=== PATIENT | female | born 1955 | race Caucasian/White ===

== ENCOUNTER 2023-05-01 22:20 | Emergency (ER) | payer MEDICARE, OTHER, SELFPAY ==
[2023-05-01 22:21] VITALS: BP 154/79; PULSE 88; RESP 16; TEMP 36.9; O2SAT 97; BMI 30.7
--- NOTE | 2023-05-01 22:56 | EX.ED.DYSGE1 ---
HPI History of Present Illness Chief Complaint: Fever Informant: patient Onset/Context/Timing Onset: Today Narrative Narrative: Patient presents secondary to elevated temperature and concern for neutropenic fever. She is currently being treated for ovarian cancer and her last chemotherapy round was on April 18. Today she felt weak and fatigued. Her temperature was 99.1 which she states is high for her. When she went to the bathroom tonight she had what looked like blood in her stool. She does admit that she does juice and uses beets and is not sure if it was truly blood or from her juicing. She does report some gum irritation with some mild bleeding. She has not had significant cough or congestion. She has not had significant abdominal pain. [facility] Medical History (Updated 05/02/23 @ 00:[address] Mercedes Mcdonald MD) Anemia Asthma Celiac disease Fibromyalgia Gout Hypertension Hypothyroidism Ovarian cancer Paroxysmal SVT (supraventricular tachycardia) Restless leg syndrome Home Medications dexamethasone 4 mg tablet 20 mg DAILY 05/02/23 [History Last Taken Unknown] levofloxacin 750 mg tablet 750 mg PO DAILY #4 tabs 05/02/23 [Rx Last Taken Unknown] olanzapine 5 mg tablet 5 - 10 mg PO QHS PRN Anxiety 05/02/23 [History Last Taken Unknown] trazodone 100 mg tablet 100 mg QHS 05/02/23 [History Last Taken Unknown] Allergy/AdvReac Type Severity Reaction Status Date / Time cefdinir Allergy Rash Verified 05/01/23 22:29 Environmental Allergies: Allergy Itching Verified 05/01/23 22:29 Uncoded [fragrances] formaldehyde Allergy Shortness Verified 05/01/23 22:29 of breath inositol Allergy PT UNSURE Verified 05/01/23 22:29 OF REACTION latex Allergy Itching Verified 05/01/23 22:29 niacin Allergy Hives Verified 05/01/23 22:29 Sulfa (Sulfonamide Allergy Hives Verified 05/01/23 22:29 Antibiotics) [sulfa drugs] aspartame AdvReac Diarrhea Verified 05/01/23 22:29 barley AdvReac Other Verified 05/01/23 22:29 ciprofloxacin [From Cipro] AdvReac Other Verified 05/01/23 22:29 shellfish derived AdvReac Vomiting Verified 05/01/23 22:29 wheat AdvReac Other Verified 05/01/23 22:29 MALT AdvReac Other Uncoded 05/01/23 22:29 Surgical History History of bowel resection History of hysterectomy Social History Smoking Status: Never smoker ROS ROS ED Constitutional Constitutional ED: Reports fever(s) Eyes Eyes: Denies change in vision or discharge from eye(s) ENT ENT ED: Denies discharge from eye(s), rhinorrhea or sore throat Cardiovascular Cardiovascular: Denies chest pain or palpitations Respiratory/Chest Respiratory/Chest: Denies cough or dyspnea Gastrointestinal Gastrointestinal: Reports other Details: Blood in stool ; Denies abdominal pain, diarrhea, nausea or vomiting Genitourinary Genitourinary ED: Denies difficulty urinating or dysuria Musculoskeletal Musculoskeletal: Denies back pain or extremity pain Integumentary Denies Abrasions or rash Neurologic Neurologic: Reports weakness; Denies headache(s) Psychiatric Psychiatric: Denies anxiety or depression Allergic/Immunologic Allergic/Immunologic ED: Denies lip swelling or urticaria EXAM Physical Exam Const Vital Signs: 05/01/23 22:21 05/01/23 23:33 05/02/23 00:34 Temperature 98.5 F 98.6 F Temperature Source Oral Oral Pulse Rate 88 76 Respiratory Rate 16 17 Respiratory Effort Normal Respiratory Pattern Normal Blood Pressure 154/79 H 151/80 H Blood Pressure Mean 104 103 Pulse Ox 97 99 Oxygen Delivery Method Room Air Room Air Positive well nourished and well developed General Appearance ED: well developed HEENT Reports normocephalic and head/scalp atraumatic Eyes PERRL and EOMs intact bilaterally Neck supple Chest Wall inspection of chest normal and palpation of chest normal Resp normal respiratory effort and clear to auscultation bilaterally Cardio regular rate and regular rhythm GI normal to inspection, nondistended, normoactive bowel sounds Palpation: soft Extremity normal to inspection Neuro oriented x3 and no sensory deficits noted Sensorium / Orientation: alert Motor Exam: strength 5/5 throughout Psych mental status grossly normal Skin no rashes or lesions noted MDM MDM MDM Narrative Medical decision making narrative: Work-up for neutropenic fever is initiated. It is noted that the patient's oral temperature here is 98.5. She did not take Tylenol or ibuprofen to blunt any effect of a fever. Lab Data Attestation: I reviewed the patient's lab results. Labs: Laboratory Results - last 24 hr 05/01/23 05/01/2305/01/23 23:12 23:12 23:12 WBC 3.0 L RBC 4.18 L Hgb 11.3 L Hct 34.1 L MCV 81.6 MCH 27.0 MCHC 33.1 RDW Std Deviation 50.8 H RDW Coeff of Michele 17.3 H Plt Count 211 MPV 8.9 Immature Gran % (Auto) 1.000 H Neut % (Auto) 34.4 L Lymph % (Auto) 49.7 H Dubois % (Auto) 12.9 H Eos % (Auto) 1.7 Baso % (Auto) 0.3 Absolute Neuts (auto) 1.0 L Absolute Lymphs (auto) 1.50 Nucleated RBC % 0 PT 13.1 INR 1.0 APTT 29.4 Sodium 138 Potassium 3.8 Chloride 106 Carbon Dioxide 25.0 Anion Gap 7 BUN 7 Creatinine 0.74 Estim Creat Clear Calc 47.79 Est GFR (MDRD) Af Amer 101 Est GFR (MDRD) Non-Af 83 BUN/Creatinine Ratio 9.5 L Glucose 116 H Lactic Acid Calcium 9.4 Total Bilirubin 0.20 AST 20 ALT 36 Alkaline Phosphatase 69 Total Protein 7.0 Albumin 3.4 Globulin 3.6 Albumin/Globulin Ratio 0.9 Urine Color Urine Clarity Urine pH Ur Specific [place] Urine Protein Urine Glucose (UA) Urine Ketones Urine Occult Blood Urine Nitrite Urine Bilirubin Urine Urobilinogen Ur Leukocyte Esterase Urine RBC Urine WBC Ur Squamous Epith Cells Urine Bacteria Urine Mucus 05/01/23 05/01/23 23:12 23:29 WBC RBC Hgb Hct MCV MCH MCHC RDW Std Deviation RDW Coeff of Michele Plt Count MPV Immature Gran % (Auto) Neut % (Auto) Lymph % (Auto) Dubois % (Auto) Eos % (Auto) Baso % (Auto) Absolute Neuts (auto) Absolute Lymphs (auto) Nucleated RBC % PT INR APTT Sodium Potassium Chloride Carbon Dioxide Anion Gap BUN Creatinine Estim Creat Clear Calc Est GFR (MDRD) Af Amer Est GFR (MDRD) Non-Af BUN/Creatinine Ratio Glucose Lactic Acid 1.5 Calcium Total Bilirubin AST ALT Alkaline Phosphatase Total Protein Albumin Globulin Albumin/Globulin Ratio Urine Color Yellow Urine Clarity Sl. Cloudy Urine pH 7.0 Ur Specific [place] 1.005 Urine Protein 15 H Urine Glucose (UA) Normal Urine Ketones Negative Urine Occult Blood Negative Urine Nitrite Negative Urine Bilirubin Negative Urine Urobilinogen Normal Ur Leukocyte Esterase 500 H Urine RBC 0 SEEN Urine WBC 0-5 SEEN Ur Squamous Epith Cells 0-5 SEEN Urine Bacteria 1+ Urine Mucus 0 SEEN Radiography Chest X-Ray - ED: 2 View, Read by ED Physician, Chronic Changes and No Infiltrates Diagnostic Testing: Clinical Impression(s) from Imaging Studies Chest X-Ray 05/01/23 23:45 IMPRESSION: No radiographic evidence of acute cardiopulmonary disease. Electronically Signed: Gurmeet Pereira MD at 0:06 EDT , Treatment and Re-Evaluation :: CBC does reveal neutropenia with absolute neutrophil count of 1000. Her white count is 3 with 34% neutrophils. Her hemoglobin is 11.3 which appears to be consistent with her prior values. Her coags are unremarkable. Chemistry studies are normal. LFTs are normal. Lactic acid is normal at 1.5. Urinalysis reveals 1+ bacteria with no nitrites and 0-5 white cells. Urine and blood cultures have been sent. Two-view chest x-ray per my interpretation reveals no evidence of focal infiltrate. Radiology interpretation is reviewed and agrees. Swab for COVID and influenza is obtained and negative. Stool guaiac is obtained and is also negative. Patient has not had a true documented temperature as her Tmax at home was 99.1. I spoke with Dr. Flynn. Given that she is neutropenic we will go ahead and cover her with 5 days of Levaquin, first dose given here. His office will reach out to her tomorrow for repeat labs. Patient is comfortable with this plan. Discharge Plan Triage Chief Complaint: Fever ED Provider: Mercedes Mcdonald Dx/Rx/DC Orders Clinical Impression: Neutropenia Instructions: Neutropenia Prescriptions: New levofloxacin 750 mg tablet 750 mg PO DAILY Qty: 4 0RF No Action olanzapine 5 mg tablet 5 - 10 mg PO QHS PRN (Reason: Anxiety) trazodone 100 mg tablet 100 mg QHS dexamethasone 4 mg tablet 20 mg DAILY Label Comments: take 5 tablets by mouth 12 hours before CHEMOTHERAPY and 5 tablets 6 hours before CHEMOTHERAPY Rx Instructions: TAKE 12 AND 6 HOURS BEFORE CHEMO Primary Care Provider: Maria Elena Moeller Referrals: Maria Elena Moeller DO [Primary Care Provider] - Philip Flynn DO [Med Staff - Active Staff] - 3-5 Days Disposition Disposition: Home, Self Care
[2023-05-01 23:35] LABS: Basophil# 0.01 X10^3/uL; Basophil% 0.3 % (0-1); Eosinophil# 0.05 X10^3/uL; Eosinophils% 1.7 % (0-5); Hematocrit 34.1 % (37-47); Hemoglobin 11.3 g/dL (12.0-15.0); Lymphocyte % 49.7 % (19-41); Mean Corp Hgb Conc 33.1 g/dL (32-36); Mean Corpuscular Volume 81.6 fL (81-99); Mean Platelet Vol. 8.9 fl (6.2-12.0); Monocyte# 0.39 X10^3/uL; Monocyte% 12.9 % (0-10); NRBC Flagged by Analyzer 0 % (0-5); Neutrophil # 1.04 X10^3/uL (2.7-7.7); Neutrophil % 34.4 % (47-70); Platelet Count 211 K/mm3 (150-450); RBC Distribution Width CV 17.3 % (11.6-14.6); RBC Distribution Width SD 50.8 fl (35.1-43.9); Red Blood Count 4.18 M/mm3 (4.2-5.4)
[2023-05-01] MEDS: 0.9% Normal Saline 1,000 ML 125 ML IV (23:35)
[2023-05-01 23:37] LABS: Mucous, Urine 0 SEEN /hpf (<or=2+); Red Blood Cells-Urine 0 SEEN /hpf (0-5)
[2023-05-01 23:40] LABS: Color, Urine Yellow (Yellow); Glucose, Dipstick Normal (Normal); Ketone-Dipstick Negative (Negative); Leukocyte Esterase-Dipstick 500 /ul (Negative); Nitrite-Dipstick Negative (Negative); Occult Blood-Urine Negative /ul (Negative); Protein-Dipstick 15 mg/dl (Negative); Specific Gravity, Urine 1.005 (1.002-1.030); Urine Bilirubin Dipstick Negative (Negative); Urine Clarity Sl. Cloudy (Clear); Urine Urobilinogen Normal (Normal)
[2023-05-01 23:45] LABS: Prothrombin Time (Protime)PT. 13.1 SECONDS (11.7-14.9)
--- NOTE | 2023-05-01 23:45 | RAD_ITS ---
EXAM: XR CHEST, 2 VIEWS CLINICAL INDICATION: fever TECHNIQUE: Frontal and lateral views of the chest. COMPARISON: No relevant prior studies available. FINDINGS: LUNGS AND PLEURAL SPACES: Unremarkable. No consolidation or edema. No pneumothorax. No effusion. No peribronchial cuffing. HEART: Normal heart size and pulmonary vasculature. MEDIASTINUM: Thoracic aorta is calcific and minimally elongated. No mediastinal widening. Trachea is midline. BONES/JOINTS: Thoracic degenerative spurring. SOFT TISSUES: Midabdominal surgical clips. RAD/Chest PA and Lateral IMPRESSION: No radiographic evidence of acute cardiopulmonary disease. Electronically Signed: Gurmeet Pereira MD at 0:06 EDT ,
[2023-05-01 23:46] LABS: Partial Thromboplast Time 29.4 Seconds (24.1-36.2)
[2023-05-01 23:52] LABS: ALB/GLOB Ratio 0.9 RATIO (0.9-2.4); AST(SGOT) 20 U/L (15-37); Alanine Aminotransfer ALT/SGPT 36 U/L (13-56); Albumin, Serum 3.4 g/dL (3.2-5.0); Alkaline Phosphatase 69 U/L (45-117); Anion Gap 7 (5-15); BUN 7 mg/dL (7-18); BUN/Creat Ratio 9.5 RATIO (10-20); Calcium,Total 9.4 mg/dL (8.5-10.1); Chloride 106 mmol/L (98-107); Creatinine, Serum 0.74 mg/dL (0.55-1.02); EST Glomerular Filtration Rate 83 mL/min (>60); Est Glom Filt Rate - Afr Amer 101 mL/min (>60); Estimated Creatinine Clearance 47.79 ml/min; Globulin 3.6 g/dL (2.2-4.2); Glucose 116 mg/dL (74-106); Potassium 3.8 mmol/L (3.5-5.1); Sodium Level 138 mmol/L (136-145)
[2023-05-01 23:54] LABS: Lactic Acid 1.5 mmol/L (0.4-1.9)
[2023-05-01 23:56] LABS: Bacteria 1+ /hpf (None Seen); Squamous Epithelial Cells - UA 0-5 SEEN /hpf (5-10); White Blood Cells 0-5 SEEN /hpf (0-5)
[2023-05-02 00:34] VITALS: BP 151/80; PULSE 76; RESP 17; TEMP 37; O2SAT 99
[2023-05-02] MEDS: levoFLOXacin 750 MG Tablet PO (00:50)
== END 2023-05-02 00:58 | disposition home or self-care (01) ==
PROVIDERS: Emergency Provider Emergency Medicine; PCP Internal Medicine; Visit Provider Emergency Medicine
DX: D70.9 Neutropenia, unspecified (principal); I10 Essential (primary) hypertension; Z92.21 Personal history of antineoplastic chemotherapy; Z85.43 Personal history of malignant neoplasm of ovary; Z90.710 Acquired absence of both cervix and uterus
CPT/HCPCS: 71046; 80053; 81001; 82274; 83605; 85025; 85610; 85730; 87040; 87086; 87088; 87428; 96360; 99284; J7030; A4216

== ENCOUNTER 2023-06-03 21:08 | Emergency (ER) | payer MEDICARE, OTHER, SELFPAY ==
[2023-06-03 21:09] VITALS: BP 172/90; PULSE 89; RESP 16; TEMP 36.4; O2SAT 97; BMI 32.0
[2023-06-03] MEDS: cloNIDine HCl 0.1 MG Tablet PO (22:15)
[2023-06-03 22:28] LABS: Anion Gap 6 (5-15); BUN 9 mg/dL (7-18); BUN/Creat Ratio 11.8 RATIO (10-20); Calcium,Total 9.6 mg/dL (8.5-10.1); Chloride 106 mmol/L (98-107); Creatinine, Serum 0.76 mg/dL (0.55-1.02); EST Glomerular Filtration Rate 81 mL/min (>60); Est Glom Filt Rate - Afr Amer 98 mL/min (>60); Estimated Creatinine Clearance 39.75 ml/min; Glucose 92 mg/dL (74-106); Potassium 3.8 mmol/L (3.5-5.1); Sodium Level 138 mmol/L (136-145)
[2023-06-03 22:36] VITALS: BP 124/99
--- NOTE | 2023-06-03 23:01 | EDS_ITS ---
HPI History of Present Illness Chief Complaint: Hypertension Detail of Chief Complaint: Elevated blood pressure Informant: patient Onset/Context/Timing Onset: Today Context: Sudden Onset Timing: Continuous Quality: Elevated blood pressure since receiving Avistatin to treat stage III FT CA Location: Cardiovascular Current Severity: Mild Maximum Severity: Mild Worsened by: New chemo Relieved by: Nothing Associated Symptoms Associated Symptoms: No symptoms that are new Narrative Narrative: Patient is a 68-year-old woman who has had trouble with her vision for over a month. She is also complained of numbness in her left hand and foot that has been intermittent for some time. 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 Today she has had significant issues. She complained of slight headache. She denied double vision, blurred vision or loss of vision. Denies trouble with speech or swallowing. Denies problems with balance or coordination. She denies chest pain or shortness of breath. She denies abdominal pain or back pain. She reports compliance with her medication. She took an extra dose of her blood pressure med as directed by her oncologist. Prior similar symptoms: No Recent Illness/Hospitalization: Yes [facility] Medical History Anemia Asthma Celiac disease Fibromyalgia Gout Hypertension Hypothyroidism Ovarian cancer Paroxysmal SVT (supraventricular tachycardia) Restless leg syndrome Home Medications acetaminophen 325 mg tablet 650 mg Q6H PRN Pain 05/02/23 [History Last Taken Unknown] albuterol sulfate 90 mcg/actuation aerosol inhaler (Proventil HFA) 2 puff inhalation Q6H PRN Shortness Of Breath 05/02/23 [History Last Taken Unknown] allopurinol 100 mg tablet 100 mg DAILY 05/02/23 [History Last Taken Unknown] dexamethasone 4 mg tablet 20 mg DAILY 05/02/23 [History Last Taken Unknown] fexofenadine 180 mg tablet 180 mg PO BID 05/02/23 [History Last Taken Unknown] levofloxacin 750 mg tablet 750 mg PO DAILY #4 tabs 05/02/23 [Rx Last Taken Unknown] levothyroxine 50 mcg capsule (Tirosint) 50 mcg PO DAILY 05/02/23 [History Last Taken Unknown] lisinopril 10 mg tablet 5 mg DAILY 05/02/23 [History Last Taken Unknown] metformin 500 mg tablet,extended release 24 hr 1,000 mg PO DAILY 05/02/23 [History Last Taken Unknown] metformin 500 mg tablet,extended release 24 hr 500 mg PO QHS 05/02/23 [History Last Taken Unknown] olanzapine 5 mg tablet 5 - 10 mg PO QHS PRN Anxiety 05/02/23 [History Last Taken Unknown] oxycodone 5 mg tablet 5 mg Q6H PRN PRN Pain 05/02/23 [History Last Taken Unknown] pantoprazole 40 mg tablet,delayed release 40 mg PO DAILY 05/02/23 [History Last Taken Unknown] polyethylene glycol 3350 17 gram/dose oral powder 17 g DAILY 05/02/23 [History Last Taken Unknown] prochlorperazine maleate 5 mg tablet 10 mg Q8 PRN Nausea 05/02/23 [History Last Taken Unknown] tizanidine 4 mg tablet 2 - 4 mg Q8 PRN Muscle Spasm 05/02/23 [History Last Taken Unknown] trazodone 100 mg tablet 100 mg QHS 05/02/23 [History Last Taken Unknown] Allergy/AdvReac Type Severity Reaction Status Date / Time cefdinir Allergy Rash Verified 05/01/23 22:29 Environmental Allergies: Allergy Itching Verified 05/01/23 22:29 Uncoded [fragrances] formaldehyde Allergy Shortness Verified 05/01/23 22:29 of breath inositol Allergy PT UNSURE Verified 05/01/23 22:29 OF REACTION latex Allergy Itching Verified 05/01/23 22:29 niacin Allergy Hives Verified 05/01/23 22:29 Sulfa (Sulfonamide Allergy Hives Verified 05/01/23 22:29 Antibiotics) [sulfa drugs] aspartame AdvReac Diarrhea Verified 05/01/23 22:29 barley AdvReac Other Verified 05/01/23 22:29 ciprofloxacin [From Cipro] AdvReac Other Verified 05/01/23 22:29 shellfish derived AdvReac Vomiting Verified 05/01/23 22:29 wheat AdvReac Other Verified 05/01/23 22:29 MALT AdvReac Other Uncoded 05/01/23 22:29 Surgical History History of bowel resection History of hysterectomy Social History (Updated 06/03/23 @ 23:[address] Zane Montes MD) household members: none Smoking Status: Never smoker substance use type: does not use ROS ROS ED Constitutional Constitutional ED: Denies chills, fever(s), subjective, sweats or weight loss Eyes Eyes: Denies blurry vision, change in vision or diplopia ENT ENT ED: Denies ear pain, rhinorrhea or sore throat Cardiovascular Cardiovascular: Denies chest pain, orthopnea, palpitations, paroxysmal nocturnal dyspnea or racing heartbeat Respiratory/Chest Respiratory/Chest: Denies cough, dyspnea, dyspnea on exertion, orthopnea or paroxysmal nocturnal dyspnea Gastrointestinal Gastrointestinal: Denies abdominal pain, nausea or vomiting Genitourinary Genitourinary ED: Denies dysuria, hematuria or urinary frequency Musculoskeletal Musculoskeletal: Denies arthralgias, back pain, myalgias or neck pain Integumentary Denies rash Neurologic Neurologic: Reports paresthesias LUE and LLE; Denies headache(s) or weakness Psychiatric Psychiatric: Denies anxiety, depression or suicidal ideation Endocrine Endocrinology: Denies cold intolerance or heat intolerance Hematologic/Lymphatic Hematologic/Lymphatic: Reports systems reviewed and no addt'l complaints, except as documented EXAM Physical Exam Const Vital Signs: 06/03/23 21:09 06/03/23 21:41 06/03/23 22:36 Temperature 97.6 F L Temperature Source Temporal Pulse Rate 89 Respiratory Rate 16 Respiratory Effort Normal Non-Labored Respiratory Pattern Normal Blood Pressure 172/90 H 124/99 H Blood Pressure Mean 117 107 Pulse Ox 97 Oxygen Delivery Method Room Air Positive well nourished and well developed General Appearance ED: well developed and NAD; Negative for cyanotic, diaphoretic or pallor HEENT Reports moist mucous membranes HEENT Narrative: Alopecia noted. Ears normal. Nares patent. Mucosa moist. Uvula midline. No deviation tongue with protrusion. Eyes PERRL and EOMs intact bilaterally General Eye ED: Negative for scleral icterus Neck no lymphadenopathy, supple and no JVD Chest Wall inspection of chest normal and palpation of chest normal Resp normal respiratory effort and clear to auscultation bilaterally Cardio regular rate, regular rhythm, S1 normal heart sound, S2 normal heart sound and no murmurs GI normal to inspection, nondistended, normoactive bowel sounds, non-tender, non- distended and no masses; Negative for hepatosplenomegaly Back/Spine no CVA tenderness Extremity normal to inspection General Extremety ED: Negative for edema or tenderness General Extremity: Negative for edema Neuro oriented x3, CN's II-XII intact bilaterally and no sensory deficits noted Sensorium / Orientation: alert Psych mental status grossly normal Skin no rashes or lesions noted, no wounds and skin turgor normal General Skin Exam: Negative for jaundice or pallor MDM MDM MDM Narrative Medical decision making narrative: Patient with a nonfocal neurologic exam. She has very minimal symptoms at this time. And her symptoms can be attributed to her chemo. She does have elevated blood pressure. We will obtain basic metabolic panel to assess for endorgan dysfunction involving her kidney. Since she normally has a pressure of 1 20-1 30 we will treat her elevated blood pressure with clonidine 0.1 mg and she is complaining of headache. Since her neuro exam is nonfocal CT of the head was not obtained. Patient was reassessed at 2301. Blood pressure has improved markedly. Her symptoms have not improved much. She was instructed to follow-up with Dr. Philip Flynn her oncologist. She was not prescribed any new blood pressure meds. Suspect this is due to her chemo since it is a known side effect and patient in all likelihood will need her chemo regimen to be changed. History & Record Review Additional record(s) reviewed:: Prior outpatient record and Prior labs Lab Data Labs: Laboratory Results - last 24 hr 06/03/23 22:10 Sodium 138 Potassium 3.8 Chloride 106 Carbon Dioxide 26.0 Anion Gap 6 BUN 9 Creatinine 0.76 Estim Creat Clear Calc 39.75 Est GFR (MDRD) Af Amer 98 Est GFR (MDRD) Non-Af 81 BUN/Creatinine Ratio 11.8 Glucose 92 Calcium 9.6 Discharge Plan Triage Chief Complaint: Hypertension ED Provider: Zane Montes Dx/Rx/DC Orders Clinical Impression: Asymptomatic hypertension, Adverse reaction to drug in therapeutic use Instructions: ED Hypertension, Established Prescriptions: No Action olanzapine 5 mg tablet 5 - 10 mg PO QHS PRN (Reason: Anxiety) trazodone 100 mg tablet 100 mg QHS dexamethasone 4 mg tablet 20 mg DAILY Patient Comments: take 5 tablets by mouth 12 hours before CHEMOTHERAPY and 5 tablets 6 hours before CHEMOTHERAPY Rx Instructions: TAKE 12 AND 6 HOURS BEFORE CHEMO acetaminophen 325 mg tablet 650 mg Q6H PRN (Reason: Pain) Patient Comments: take 2 tablets by mouth every 6 hours if needed for pain tizanidine 4 mg tablet 2 - 4 mg Q8 PRN (Reason: Muscle Spasm) Patient Comments: take 1/2 to 1 tablet by mouth every 8 hours if needed MAXIMUM DAILY DOSE OF 3 tablets prochlorperazine maleate 5 mg tablet 10 mg Q8 PRN (Reason: Nausea) pantoprazole 40 mg tablet,delayed release (DR/EC) 40 mg PO DAILY Patient Comments: take 1 tablet by mouth 30 MINUTES MEAL polyethylene glycol 3350 17 gram/dose powder 17 g DAILY Patient Comments: take 17GM (DISSOLVED IN 4 TO 8 OUNCES OF LIQUID) by mouth once daily if needed for constipation oxycodone 5 mg tablet 5 mg Q6H PRN PRN (Reason: Pain) Patient Comments: take 1 tablet by mouth every 6 hours NEEDED FOR PAIN for up to 7 days levofloxacin 750 mg tablet 750 mg PO DAILY Qty: 4 0RF fexofenadine [Patricia] 180 mg Tablet 180 mg PO BID allopurinol 100 mg tablet 100 mg DAILY lisinopril 10 mg tablet 5 mg DAILY albuterol sulfate [Proventil HFA] 90 mcg/actuation Hfa Aerosol Inhaler 2 puff INHALATION Q6H PRN (Reason: Shortness Of Breath) metformin 500 mg tablet extended release 24 hr 1,000 mg PO DAILY Patient Comments: take 2 tablets by mouth every morning and 1 tablet by mouth AT 1 PM metformin 500 mg tablet extended release 24 hr 500 mg PO QHS Patient Comments: take 2 tablets by mouth every morning and 1 tablet by mouth AT 1 PM levothyroxine [Tirosint] 50 mcg capsule 50 mcg PO DAILY Patient Comments: take 1 capsule by mouth once daily Primary Care Provider: Maria Elena Moeller Referrals: Maria Elena Moeller DO [Primary Care Provider] - 1-2 Weeks Philip Flynn DO [Med Staff - Active Staff] - 3-5 Days Disposition Disposition: Home, Self Care
[2023-06-03 23:10] VITALS: BP 128/89
== END 2023-06-03 23:37 | disposition home or self-care (01) ==
LOC: ED 23:34
PROVIDERS: Emergency Provider Emergency Medicine; PCP Internal Medicine; Visit Provider Emergency Medicine
DX: I10 Essential (primary) hypertension (principal); T45.1X5A Adverse effect of antineoplastic and immunosuppressive drugs, initial encounter; Z85.89 Personal history of malignant neoplasm of other organs and systems; J45.909 Unspecified asthma, uncomplicated; Z79.899 Other long term (current) drug therapy; M10.9 Gout, unspecified; E03.9 Hypothyroidism, unspecified
CPT/HCPCS: 80048; 99284

== ENCOUNTER 2023-09-10 18:56 | Emergency (ER) | payer MEDICARE, OTHER, SELFPAY ==
[2023-09-10 18:57] VITALS: BP 151/69; PULSE 98; RESP 18; TEMP 36.1; O2SAT 98; BMI 33.0
--- NOTE | 2023-09-10 19:22 | EX.ED.DYSGE1 ---
HPI <BINTA Goncalves - Last Filed: 09/10/23 20:48> History of Present Illness Chief Complaint: Abd Pain Narrative Narrative: 68-year-old female presents with increased abdominal pain that started after waking up today and vomiting that started an hour ago. She has a history of stage III ovarian cancer and had extensive abdominal surgery in January 2023 at [facility] with Dr. Landis. She states they did a complete hysterectomy as well as removing part of her omentum and lymph nodes. Since then she has had intermittent significant abdominal pain and treated it conservatively at home by pushing on her abdomen. She was never evaluated during these episodes so it's not clear if this represented a partial small bowel obstruction. Today she was able to eat breakfast and lunch but then had increased pain and vomited once while here which improved her pain. She had 2 normal BMs earlier today and is passing gas. [facility] <BINTA Goncalves - Last Filed: 09/10/23 20:48> [facility] Medical History Anemia Asthma Celiac disease Fibromyalgia Gout Hypertension Hypothyroidism Ovarian cancer Paroxysmal SVT (supraventricular tachycardia) Restless leg syndrome Home Medications acetaminophen 325 mg tablet 650 mg Q6H PRN Pain 05/02/23 [History Last Taken Unknown] albuterol sulfate 90 mcg/actuation aerosol inhaler (Proventil HFA) 2 puff inhalation Q6H PRN Shortness Of Breath 05/02/23 [History Last Taken Unknown] allopurinol 100 mg tablet 100 mg DAILY 05/02/23 [History Last Taken Unknown] dexamethasone 4 mg tablet 20 mg DAILY 05/02/23 [History Last Taken Unknown] fexofenadine 180 mg tablet 180 mg PO BID 05/02/23 [History Last Taken Unknown] levofloxacin 750 mg tablet 750 mg PO DAILY #4 tabs 05/02/23 [Rx Last Taken Unknown] levothyroxine 50 mcg capsule (Tirosint) 50 mcg PO DAILY 05/02/23 [History Last Taken Unknown] lisinopril 10 mg tablet 5 mg DAILY 05/02/23 [History Last Taken Unknown] metformin 500 mg tablet,extended release 24 hr 1,000 mg PO DAILY 05/02/23 [History Last Taken Unknown] metformin 500 mg tablet,extended release 24 hr 500 mg PO QHS 05/02/23 [History Last Taken Unknown] olanzapine 5 mg tablet 5 - 10 mg PO QHS PRN Anxiety 05/02/23 [History Last Taken Unknown] oxycodone 5 mg tablet 5 mg Q6H PRN PRN Pain 05/02/23 [History Last Taken Unknown] pantoprazole 40 mg tablet,delayed release 40 mg PO DAILY 05/02/23 [History Last Taken Unknown] polyethylene glycol 3350 17 gram/dose oral powder 17 g DAILY 05/02/23 [History Last Taken Unknown] prochlorperazine maleate 5 mg tablet 10 mg Q8 PRN Nausea 05/02/23 [History Last Taken Unknown] tizanidine 4 mg tablet 2 - 4 mg Q8 PRN Muscle Spasm 05/02/23 [History Last Taken Unknown] trazodone 100 mg tablet 100 mg QHS 05/02/23 [History Last Taken Unknown] Allergy/AdvReac Type Severity Reaction Status Date / Time Food Allergies: Uncoded Allergy Mild Upset Verified 09/10/23 19:00 Stomach cefdinir Allergy Rash Verified 09/10/23 19:00 Environmental Allergies: Allergy Itching Verified 09/10/23 19:00 Uncoded [fragrances] formaldehyde Allergy Shortness Verified 09/10/23 19:00 of breath inositol Allergy PT UNSURE Verified 09/10/23 19:00 OF REACTION latex Allergy Itching Verified 09/10/23 19:00 niacin Allergy Hives Verified 09/10/23 19:00 Sulfa (Sulfonamide Allergy Hives Verified 09/10/23 19:00 Antibiotics) [sulfa drugs] aspartame AdvReac Diarrhea Verified 09/10/23 19:00 barley AdvReac Other Verified 09/10/23 19:00 ciprofloxacin [From Cipro] AdvReac Other Verified 09/10/23 19:00 shellfish derived AdvReac Vomiting Verified 09/10/23 19:00 wheat AdvReac Other Verified 09/10/23 19:00 Surgical History History of bowel resection History of hysterectomy Social History (Updated 06/03/23 @ 23:[address] Zane Montes MD) household members: none Smoking Status: Never smoker substance use type: does not use ROS <BINTA Goncalves - Last Filed: 09/10/23 20:48> ROS ED ROS Narrative Constitutional: Negative for fever, chills, malaise. CVS: Negative for chest pain. Respiratory: Negative for shortness of breath. GI: Positive for abdominal pain, nausea, vomiting. Negative for diarrhea, constipation, melena, hematochezia. : Negative for dysuria. EXAM <BINTA Goncalves - Last Filed: 09/10/23 20:48> Physical Exam Narrative Exam Narrative: CONST: Patient sitting in no acute distress. EYES: Normal inspection. NECK: Normal inspection. RESP: No respiratory distress, CTAB. CVS: Regular rate and rhythm, no murmur, no gallop. ABD: Soft with periumbilical tenderness but no palpable hernia, no guarding or rebound, nondistended. SKIN: Color normal, no rash, warm, dry, intact. EXTREMITIES: Normal appearance, no pedal edema. NEURO: Oriented x4. PSYCH: Normal affect. Const Vital Signs: 09/10/23 18:57 09/10/23 21:00 Temperature 97 F L Temperature Source Temporal Pulse Rate 98 Respiratory Rate 18 16 Blood Pressure 151/69 H Blood Pressure Mean 96 Pulse Ox 98 Oxygen Delivery Method Room Air <Dr. Mercedes Mcdonald MD - Last Filed: 09/10/23 22:54> Physical Exam Const Vital Signs: 09/10/23 18:57 09/10/23 21:00 Temperature 97 F L Temperature Source Temporal Pulse Rate 98 Respiratory Rate 18 16 Blood Pressure 151/69 H Blood Pressure Mean 96 Pulse Ox 98 Oxygen Delivery Method Room Air MDM <BINTA Goncalves - Last Filed: 09/10/23 20:48> MDM MDM Narrative Medical decision making narrative: Patient has history of ovarian cancer s/p surgical resection and presents with increased abdominal pain and vomiting x1 day. She appears well and nontoxic. Vital signs stable. She has no evidence of dehydration. Normal cardiopulmonary exam. Abdomen is soft with periumbilical tenderness. There is no distention or palpable hernia. CBC and BMP are unremarkable. She was treated with IV fluids, morphine, and Zofran and CT with oral/IV contrast is ordered and case was signed over to my attending physician. Differential: Small bowel obstruction, metastasis, diverticulitis among others Consults: Her field marketing specialist-onc physician at [facility] called to relay history Lab Data Attestation: I reviewed the patient's lab results. Labs: Laboratory Results - last 24 hr 09/10/23 09/10/23 19:25 20:50 WBC 10.4 RBC 4.09 L Hgb 12.4 Hct 38.0 MCV 92.9 MCH 30.3 MCHC 32.6 RDW Std Deviation 50.4 H RDW Coeff of Michele 14.6 Plt Count 243 MPV 8.9 Immature Gran % (Auto) 1.000 H Neut % (Auto) 78.3 H Lymph % (Auto) 13.8 L [place] % (Auto) 6.3 Eos % (Auto) 0.2 Baso % (Auto) 0.4 Absolute Neuts (auto) 8.2 H Absolute Lymphs (auto) 1.44 Nucleated RBC % 0 Sodium 139 Potassium 3.8 Chloride 108 H Carbon Dioxide 25.0 Anion Gap 6 BUN 17 Creatinine 0.94 Estim Creat Clear Calc 42.29 Est GFR (MDRD) Af Amer 76 Est GFR (MDRD) Non-Af 63 BUN/Creatinine Ratio 18.0 Glucose 143 H Calcium 9.7 Total Bilirubin 0.30 AST 20 ALT 39 Alkaline Phosphatase 72 Total Protein 7.8 Albumin 4.0 Globulin 3.8 Albumin/Globulin Ratio 1.1 Urine Color Yellow Urine Clarity Clear Urine pH 7.0 Ur Specific [place] 1.010 Urine Protein Negative Urine Glucose (UA) Normal Urine Ketones 50 H Urine Occult Blood Negative Urine Nitrite Negative Urine Bilirubin Negative Urine Urobilinogen Normal Ur Leukocyte Esterase 100 H Urine RBC 0 SEEN Urine WBC 0-5 SEEN Ur Squamous Epith Cells 0-5 SEEN Urine Bacteria 0 SEEN Urine Mucus 0 SEEN Radiography Diagnostic Testing: Clinical Impression(s) from Imaging Studies Abdomen/Pelvis CT 09/10/23 19:23 IMPRESSION: High-grade small bowel obstruction likely due to adhesions secondary to prior bowel resection in the right mid to upper abdomen. Status post MARCELLO/BSO Electronically Signed: Harry Brambila MD at 21:53 EDT , <Dr. Mercedes Mcdonald MD - Last Filed: 09/10/23 22:54> [facility] Lab Data Labs: Laboratory Results - last 24 hr 09/10/23 09/10/23 19:25 20:50 WBC 10.4 RBC 4.09 L Hgb 12.4 Hct 38.0 MCV 92.9 MCH 30.3 MCHC 32.6 RDW Std Deviation 50.4 H RDW Coeff of Michele 14.6 Plt Count 243 MPV 8.9 Immature Gran % (Auto) 1.000 H Neut % (Auto) 78.3 H Lymph % (Auto) 13.8 L [place] % (Auto) 6.3 Eos % (Auto) 0.2 Baso % (Auto) 0.4 Absolute Neuts (auto) 8.2 H Absolute Lymphs (auto) 1.44 Nucleated RBC % 0 Sodium 139 Potassium 3.8 Chloride 108 H Carbon Dioxide 25.0 Anion Gap 6 BUN 17 Creatinine 0.94 Estim Creat Clear Calc 42.29 Est GFR (MDRD) Af Amer 76 Est GFR (MDRD) Non-Af 63 BUN/Creatinine Ratio 18.0 Glucose 143 H Calcium 9.7 Total Bilirubin 0.30 AST 20 ALT 39 Alkaline Phosphatase 72 Total Protein 7.8 Albumin 4.0 Globulin 3.8 Albumin/Globulin Ratio 1.1 Urine Color Yellow Urine Clarity Clear Urine pH 7.0 Ur Specific [place] 1.010 Urine Protein Negative Urine Glucose (UA) Normal Urine Ketones 50 H Urine Occult Blood Negative Urine Nitrite Negative Urine Bilirubin Negative Urine Urobilinogen Normal Ur Leukocyte Esterase 100 H Urine RBC 0 SEEN Urine WBC 0-5 SEEN Ur Squamous Epith Cells 0-5 SEEN Urine Bacteria 0 SEEN Urine Mucus 0 SEEN Radiography Diagnostic Testing: Clinical Impression(s) from Imaging Studies Abdomen/Pelvis CT 09/10/23 19:23 IMPRESSION: High-grade small bowel obstruction likely due to adhesions secondary to prior bowel resection in the right mid to upper abdomen. Status post MARCELLO/BSO Electronically Signed: Harry Brambila MD at 21:53 EDT , Treatment and Re-Evaluation :: Patient seen and evaluated with FREDERICK. I personally interviewed and examined the patient. I was involved in all aspects of patient's orders, interpretation of results, and treatment. Patient presents secondary to abdominal pain. She had intermittent severe abdominal pain like this since having surgery for ovarian cancer last spring at [facility]. Her Irrigation Supervisor Onc doc called stating she was coming in and she was concerned that patient might be having intermittent bowel obstructions. Patient sitting upright in bed no acute distress. Head and neck examination unremarkable. Heart is regular rate and rhythm. Lung sounds are clear. Abdomen is soft with mild distention. No focal tenderness. Hypoactive bowel sounds are heard intermittently. Lab work obtained and largely unremarkable. Urinalysis is negative. CT scan with p.o. and IV contrast obtained reveals a high-grade bowel obstruction likely secondary to adhesions from her prior surgery. Went back to discuss the test results with the patient she was having recurrent nausea. NG tube was placed. I spoke with the patient's Irrigation Supervisor Onc physician from [facility] and patient has been accepted in transfer. She will go ER to ER secondary to no open beds at the hospital. Discharge Plan Triage Chief Complaint: Abd Pain ED Midlevel Provider: Yoana Mejia ED Provider: Mercedes Mcdonald Dx/Rx/DC Orders Clinical Impression: Bowel obstruction, History of ovarian cancer Prescriptions: No Action olanzapine 5 mg tablet 5 - 10 mg PO QHS PRN (Reason: Anxiety) trazodone 100 mg tablet 100 mg QHS dexamethasone 4 mg tablet 20 mg DAILY Patient Comments: take 5 tablets by mouth 12 hours before CHEMOTHERAPY and 5 tablets 6 hours before CHEMOTHERAPY Rx Instructions: TAKE 12 AND 6 HOURS BEFORE CHEMO acetaminophen 325 mg tablet 650 mg Q6H PRN (Reason: Pain) Patient Comments: take 2 tablets by mouth every 6 hours if needed for pain tizanidine 4 mg tablet 2 - 4 mg Q8 PRN (Reason: Muscle Spasm) Patient Comments: take 1/2 to 1 tablet by mouth every 8 hours if needed MAXIMUM DAILY DOSE OF 3 tablets prochlorperazine maleate 5 mg tablet 10 mg Q8 PRN (Reason: Nausea) pantoprazole 40 mg tablet,delayed release (DR/EC) 40 mg PO DAILY Patient Comments: take 1 tablet by mouth 30 MINUTES MEAL polyethylene glycol 3350 17 gram/dose powder 17 g DAILY Patient Comments: take 17GM (DISSOLVED IN 4 TO 8 OUNCES OF LIQUID) by mouth once daily if needed for constipation oxycodone 5 mg tablet 5 mg Q6H PRN PRN (Reason: Pain) Patient Comments: take 1 tablet by mouth every 6 hours NEEDED FOR PAIN for up to 7 days levofloxacin 750 mg tablet 750 mg PO DAILY Qty: 4 0RF fexofenadine [Patricia] 180 mg Tablet 180 mg PO BID allopurinol 100 mg tablet 100 mg DAILY lisinopril 10 mg tablet 5 mg DAILY albuterol sulfate [Proventil HFA] 90 mcg/actuation Hfa Aerosol Inhaler 2 puff INHALATION Q6H PRN (Reason: Shortness Of Breath) metformin 500 mg tablet extended release 24 hr 1,000 mg PO DAILY Patient Comments: take 2 tablets by mouth every morning and 1 tablet by mouth AT 1 PM metformin 500 mg tablet extended release 24 hr 500 mg PO QHS Patient Comments: take 2 tablets by mouth every morning and 1 tablet by mouth AT 1 PM levothyroxine [Tirosint] 50 mcg capsule 50 mcg PO DAILY Patient Comments: take 1 capsule by mouth once daily Primary Care Provider: Maria Elena Moeller Referrals: Maria Elena Moeller DO [Primary Care Provider] - Disposition Disposition: Acute Care Hospital Discharge Location: [facility]
--- NOTE | 2023-09-10 19:23 | CT_ITS ---
STUDY: CT ABDOMEN AND PELVIS WITH CONTRAST REASON FOR EXAM: Female, 68 years old. abdominal pain RADIATION DOSAGE (If Supplied By Facility): CTDIvol = ( 15.45 ) mGy, DLP = ( 1045.54 ) mGycm TECHNIQUE: Transaxial images were obtained from the dome of the diaphragm to the symphysis pubis without oral contrast. Oral and amp; IV Gastrografin and amp; 100mL Isovue-300 was administered. Sagittal and coronal images were reconstructed. Individualized dose optimization techniques were used for this CT. COMPARISON: None. FINDINGS: The visualized lung bases are unremarkable. The visualized portions of the heart are within normal limits. Nonspecific fatty infiltrated liver without mass or bile duct dilatation.. Normal gallbladder and extrahepatic biliary system. Normal spleen. Normal pancreas. Normal bilateral adrenal glands. Normal right kidney. Normal left kidney. Diffuse gastric distention in association with diffusely distended small bowel with transition point and fecalization of several loops consistent with small bowel obstruction at site of bowel resection in the right mid-upper abdomen likely due to adhesions . No evidence for acute appendicitis. [Atherosclerotic change of the aorta without evidence for aneurysm. Normal inferior vena cava. Normal retroperitoneum. Nonspecific bladder distention. Uterus not visualized status post MARCELLO/BSO Normal abdominal wall. Lumbar spine demonstrates mild spondylosis CT/Abdomen/Pelvis WITH Contrast IMPRESSION: High-grade small bowel obstruction likely due to adhesions secondary to prior bowel resection in the right mid to upper abdomen. Status post MARCELLO/BSO Electronically Signed: Harry Brambila MD at 21:53 EDT ,
[2023-09-10] MEDS: 0.9% Normal Saline (1000mL) 1,000 ML 999 ML IV (19:27)
[2023-09-10] MEDS: Ondansetron 4 MG/2 ML Vial IV (19:27)
[2023-09-10] MEDS: Morphine 4 MG/ML Syringe IV (19:31)
[2023-09-10 19:39] LABS: Absolute Lymphocyte Count 1.44 X10^3/uL (0.83-4.51); Absolute Neutrophil Count 8.2 X10^3/uL (2.0-7.7); Basophil# 0.04 X10^3/uL; Basophil% 0.4 % (0-1); Eosinophil# 0.02 X10^3/uL; Eosinophils% 0.2 % (0-5); Hemoglobin 12.4 g/dL (12.0-15.0); Lymphocyte # 1.44 X10^3/ul (0.83-4.51); Lymphocyte % 13.8 % (19-41); Mean Corp Hgb Conc 32.6 g/dL (32-36); Mean Corpuscular Hgb 30.3 pg (27.0-32.0); Mean Corpuscular Volume 92.9 fL (81-99); Mean Platelet Vol. 8.9 fl (6.2-12.0); Monocyte# 0.66 X10^3/uL; Monocyte% 6.3 % (0-10); NRBC Flagged by Analyzer 0 % (0-5); Neutrophil # 8.15 X10^3/uL (2.7-7.7); Neutrophil % 78.3 % (47-70); Platelet Count 243 K/mm3 (150-450); RBC Distribution Width CV 14.6 % (11.6-14.6); RBC Distribution Width SD 50.4 fl (35.1-43.9); Red Blood Count 4.09 M/mm3 (4.2-5.4); White Blood Count 10.4 K/mm3 (4.4-11.0)
--- NOTE | 2023-09-10 19:42 | ED.RN ---
PT STATES SHE IS ALLERGIC TO ASPARTAME AND CANNOT DRINK CT DRINK. CT STATES SHE WILL MIX THE CONTRAST WITH WATER.
[2023-09-10 19:56] LABS: ALB/GLOB Ratio 1.1 RATIO (0.9-2.4); AST(SGOT) 20 U/L (15-37); Alanine Aminotransfer ALT/SGPT 39 U/L (13-56); Alkaline Phosphatase 72 U/L (45-117); Anion Gap 6 (5-15); BUN 17 mg/dL (7-18); Calcium,Total 9.7 mg/dL (8.5-10.1); Chloride 108 mmol/L (98-107); Creatinine, Serum 0.94 mg/dL (0.55-1.02); EST Glomerular Filtration Rate 63 mL/min (>60); Est Glom Filt Rate - Afr Amer 76 mL/min (>60); Estimated Creatinine Clearance 42.29 ml/min; Globulin 3.8 g/dL (2.2-4.2); Glucose 143 mg/dL (74-106); Potassium 3.8 mmol/L (3.5-5.1); Protein, Total 7.8 g/dL (6.4-8.2); Sodium Level 139 mmol/L (136-145)
[2023-09-10 20:58] LABS: Bacteria 0 SEEN /hpf (None Seen); Mucous, Urine 0 SEEN /hpf (<or=2+); Red Blood Cells-Urine 0 SEEN /hpf (0-5)
[2023-09-10 21:00] VITALS: RESP 16
[2023-09-10 21:00] LABS: Color, Urine Yellow (Yellow); Glucose, Dipstick Normal (Normal); Ketone-Dipstick 50 mg/dl (Negative); Leukocyte Esterase-Dipstick 100 /ul (Negative); Nitrite-Dipstick Negative (Negative); Occult Blood-Urine Negative /ul (Negative); Protein-Dipstick Negative (Negative); Urine Bilirubin Dipstick Negative (Negative); Urine Clarity Clear (Clear); Urine Urobilinogen Normal (Normal)
[2023-09-10 21:07] LABS: Squamous Epithelial Cells - UA 0-5 SEEN /hpf (5-10); White Blood Cells 0-5 SEEN /hpf (0-5)
[2023-09-10] MEDS: Oxymetazoline 0.05% 1 SPRAY SPRAY.BTL 2 SPRAY NASAL (22:26)
[2023-09-10] MEDS: Morphine 2 MG/ML Syringe IV (22:29)
--- NOTE | 2023-09-10 22:43 | RAD_ITS ---
EXAM: XR ABDOMEN, 1 VIEW CLINICAL INDICATION: NG Insertion TECHNIQUE: Frontal supine view of the abdomen/pelvis. COMPARISON: Abdomen pelvis CT of this date. FINDINGS: LOWER THORAX: Visualized lung bases are clear. GASTROINTESTINAL TRACT: A few small bowel air-fluid levels are seen within the mid abdomen. ORGANS: Unremarkable as visualized. No organomegaly. No abnormal calcifications. BONES/JOINTS: Thoracolumbar degenerative spurring. SOFT TISSUES: No acute pathology. TUBES, LINES AND DEVICES: NG tube has been inserted and extends into the stomach; the tip of the NG tube is projected within the gastric body. Sidehole of the tube also lies within the gastric lumen. RAD/Abdomen Single View (Portable) IMPRESSION: Satisfactory NG tube positioning. Electronically Signed: Gurmeet Pereira MD at 23:09 EDT ,
[2023-09-11] VITALS: BP 144/88; PULSE 72; RESP 16; TEMP 36.6; O2SAT 96
[2023-09-11 00:09] VITALS: RESP 18; O2SAT 95
[2023-09-11 00:46] VITALS: BP 142/90; PULSE 84; RESP 18; O2SAT 95
[2023-09-11] MEDS: Morphine 4 MG/ML Syringe IV (01:02)
[2023-09-11] MEDS: 0.9% Normal Saline (1000mL) 1,000 ML 200 ML IV (01:07)
[2023-09-11 02:00] VITALS: BP 122/57; PULSE 65; RESP 14; O2SAT 96
== END 2023-09-11 02:17 | disposition short-term general hospital (02) ==
PROVIDERS: Physician Assistant; Emergency Provider Emergency Medicine; PCP Internal Medicine; Visit Provider Emergency Medicine
DX: K56.609 Unspecified intestinal obstruction, unspecified as to partial versus complete obstruction (principal); I10 Essential (primary) hypertension; Z85.43 Personal history of malignant neoplasm of ovary; Z90.710 Acquired absence of both cervix and uterus; J45.909 Unspecified asthma, uncomplicated; M10.9 Gout, unspecified; E03.9 Hypothyroidism, unspecified
CPT/HCPCS: 74018; 74177; 80053; 81001; 85025; 96361; 96374; 96375; 96376; 99283; J7030; Q9967; A4216; J2405

== ENCOUNTER 2024-04-24 10:34 | Emergency (ER) | payer MEDICARE, OTHER, SELFPAY ==
[2024-04-24 10:35] VITALS: BP 112/45; PULSE 96; RESP 17; TEMP 35.8; O2SAT 96; BMI 32.1
--- NOTE | 2024-04-24 11:07 | CT_ITS ---
STUDY: CTA CHEST REASON FOR EXAM: Female, 69 years old. Pleuritic chest pain, dyspnea, Fallopian CA w mets RADIATION DOSAGE (If Supplied By Facility): CTDIvol = ( 10.38 ) mGy, DLP = ( 405.96 ) mGycm TECHNIQUE: The examination was performed with the intravenous administration of IV 100mL Isovue-370. Post-processing of the angiographic images was performed, with multiplanar reformation and 3D reconstruction. Individualized dose optimization techniques were used for this CT. COMPARISON: None. FINDINGS: Normal enhancement of the main pulmonary artery and right and left pulmonary arteries. Normal enhancement of the bilateral peripheral pulmonary arteries. There is no demonstrated pulmonary embolism. There is atherosclerotic calcification of the aortic arch with tortuosity. There is no demonstrated aortic dissection. Normal heart and pericardium. No coronary artery calcification is seen. Enlarged mediastinal lymph nodes. Normal hilar regions. Normal visualized trachea and bronchi. The lungs are well expanded. Minimal bibasilar atelectasis is more prominent at the right lung base. Normal pleura. Normal chest wall structures. There are degenerative changes of thoracic spine. I suspect a 1.3 cm lymph node in the upper left para-aortic region. CT/CTA Chest W/WO Contrast IMPRESSION: No evidence of pulmonary embolism. Mild degree of bibasilar atelectasis slightly worse on the right side. Enlarged mediastinal lymph nodes. Small lymph node in the upper left para-aortic region. Electronically Signed: Maximiliano Leonard MD at 12:22 EDT ,
--- NOTE | 2024-04-24 11:07 | EKG12_ITS ---
Test Reason : AT Blood Pressure : / mmHG Vent. Rate : 090 BPM Atrial Rate : 090 BPM P-R Int : 140 ms QRS Dur : 076 ms QT Int : 360 ms P-R-T Axes : 069 059 046 degrees QTc Int : 440 ms Normal sinus rhythm Normal ECG Confirmed by NISH VILLAR, PHILIPPE ([id number]), editorial project manager BRYAN CHRISTIANSON ([id number]) on 04/27/2024 8:33:02 AM Referred By: HEIDY/RU Confirmed By:PHILIPPE MOCK MD
--- NOTE | 2024-04-24 11:09 | ED.VIS.CHEST ---
HPI History of Present Illness Chief Complaint: Chest Pain Detail of Chief Complaint: Chest pain Informant: patient Narrative Narrative: Patient presents to the emergency department with complaint of chest pain. Patient has history of fallopian cancer with metastasis. Over the last week she has had upper abdomen pain and now pain in her back and into her throat. There is concern for PE and sent to the ER for evaluation. Patient was supposed to start a clinical trial at [facility] but then that trial was discontinued. Patient has been without chemotherapy for 8 or 9 weeks and she was not responding to that as the cancer was spreading. Patient states she had a recent echocardiogram of her heart and was told her heart was strong. She denies nausea or vomiting currently although she had some episodes of vomiting last week. [facility] Medical History Anemia Asthma Celiac disease Fibromyalgia Gout Hypertension Hypothyroidism Ovarian cancer Paroxysmal SVT (supraventricular tachycardia) Restless leg syndrome Home Medications ?Medication ?Instructions ?Recorded ?Last Taken ?Type acetaminophen 325 mg tablet 650 mg PO Q6H PRN Pain 05/02/23 Unknown History albuterol sulfate 90 mcg/actuation 2 puff inhalation Q6H PRN 05/02/23 Unknown History aerosol inhaler (Proventil HFA) Shortness Of Breath allopurinol 100 mg tablet 100 mg PO DAILY 05/02/23 Unknown History fexofenadine 180 mg tablet 180 mg PO Q24H 05/02/23 Unknown History levothyroxine 50 mcg capsule 50 mcg PO DAILY 05/02/23 Unknown History (Tirosint) lisinopril 10 mg tablet 20 mg PO DAILY 05/02/23 Unknown History metformin 500 mg tablet,extended 1,000 mg PO DAILY 05/02/23 Unknown History release 24 hr metformin 500 mg tablet,extended 500 mg PO QHS 05/02/23 Unknown History release 24 hr pantoprazole 40 mg tablet,delayed 40 mg PO DAILY 05/02/23 Unknown History release polyethylene glycol 3350 17 17 g PO DAILY PRN constipation 05/02/23 Unknown History gram/dose oral powder tizanidine 4 mg tablet 2 - 4 mg PO Q8 PRN Muscle Spasm 05/02/23 Unknown History trazodone 100 mg tablet 100 mg PO QHS 05/02/23 Unknown History azelastine 137 mcg (0.1 %) nasal 1 spray intranasal Q12H 09/11/23 Unknown History spray aerosol olanzapine 2.5 mg tablet 2.5 mg PO QHS 09/11/23 Unknown History ondansetron HCl 4 mg tablet 4 mg PO Q8H PRN nausea and vomiting 09/11/23 Unknown History Allergy/AdvReac Type Severity Reaction Status Date / Time Food Allergies: Uncoded Allergy Mild Upset Verified 09/10/23 19:00 Stomach cefdinir Allergy Rash Verified 09/10/23 19:00 Environmental Allergies: Allergy Itching Verified 09/10/23 19:00 Uncoded (fragrances) formaldehyde Allergy Shortness Verified 09/10/23 19:00 of breath inositol Allergy PT UNSURE Verified 09/10/23 19:00 OF REACTION latex Allergy Itching Verified 09/10/23 19:00 niacin Allergy Hives Verified 09/10/23 19:00 Sulfa (Sulfonamide Allergy Hives Verified 09/10/23 19:00 Antibiotics) (sulfa drugs) aspartame AdvReac Diarrhea Verified 09/10/23 19:00 barley AdvReac Other Verified 09/10/23 19:00 ciprofloxacin (From Cipro) AdvReac Other Verified 09/10/23 19:00 shellfish derived AdvReac Vomiting Verified 09/10/23 19:00 wheat AdvReac Other Verified 09/10/23 19:00 Surgical History History of bowel resection History of hysterectomy Social History (Updated 06/03/23 @ 23:[address] Zane Montes MD) household members: none Smoking Status: Never smoker substance use type: does not use ROS ROS ED Review of Systems ROS Unobtainable: other Constitutional Constitutional ED: Reports lethargy; Denies chills, fever(s), sweats or weight loss Eyes Eyes: Denies blurry vision, change in vision or diplopia ENT ENT ED: Denies rhinorrhea or sore throat Cardiovascular Cardiovascular: Reports chest pain; Denies orthopnea or racing heartbeat Respiratory/Chest Respiratory/Chest: Reports other Details: Pain with deep breath ; Denies cough, dyspnea, dyspnea on exertion, orthopnea or sputum Gastrointestinal Gastrointestinal: Reports abdominal pain; Denies diarrhea, nausea or vomiting Genitourinary Genitourinary ED: Denies dysuria, hematuria or urinary frequency Musculoskeletal Musculoskeletal: Denies arthralgias, back pain, myalgias or neck pain Integumentary Denies abscess, Abrasions or rash Neurologic Neurologic: Denies headache(s) or weakness Psychiatric Psychiatric: Denies anxiety, depression or suicidal thoughts Endocrine Endocrinology: Denies polydipsia, polyphagia or polyuria Hematologic/Lymphatic Hematologic/Lymphatic: Denies easy bleeding, easy bruising or lymphadenopathy Allergic/Immunologic Allergic/Immunologic ED: Denies mouth swelling, tongue swelling or urticaria EXAM Physical Exam Const Vital Signs: 04/24/24 10:35 04/24/24 11:34 04/24/24 12:10 Temperature 96.4 F L Temperature Source Temporal Pulse Rate 96 81 75 Respiratory Rate 17 16 16 Blood Pressure 112/45 L 129/78 H 113/70 Blood Pressure Mean 67 95 84 Pulse Ox 96 98 97 Oxygen Delivery Method Room Air Room Air Room Air Positive well nourished and well developed General Appearance ED: well developed and NAD HEENT Reports TM's clear and moist mucous membranes normocephalic and atraumatic; Negative for trauma or tenderness Tympanic Membrane ED: Yes TM's clear Eyes PERRL and EOMs intact bilaterally General Eye ED: Negative for pale conjunctiva or scleral icterus Neck no lymphadenopathy, supple and no JVD General: Negative for tenderness Chest Wall inspection of chest normal and palpation of chest normal Chest: Negative for tenderness Resp normal respiratory effort and clear to auscultation bilaterally Effort and Inspection: Negative for respiratory distress or pain with movement Auscultation: Negative for rhonchi, wheezes or diminished lung sounds Cardio regular rate, regular rhythm, S1 normal heart sound, S2 normal heart sound and no murmurs Peripheral Pulses: pulses 2+ throughout GI normal to inspection, nondistended, normoactive bowel sounds, soft to palpation, non-tender, non-distended and no masses GI Narrative: Mild epigastric tenderness on palpation. Some mild guarding. There is no rebound, rigidity, or pineal signs. No mass palpated. Back/Spine no CVA tenderness and no thoracic nor lumbar tenderness Extremity normal to inspection General Extremety ED: Negative for edema General Extremity: Negative for edema Neuro oriented x3, CN's II-XII intact bilaterally, no sensory deficits noted and gait normal Sensorium / Orientation: awake, alert, oriented to person, oriented to place and oriented to time Motor Exam: strength 5/5 throughout and strength abnormal Psych mental status grossly normal Skin no rashes or lesions noted and no wounds MDM MDM MDM Narrative Medical decision making narrative: Patient is a current cancer patient with Ashley cancer with metastasis came in for evaluation of chest discomfort and upper abdomen pain to rule out mainly PE. IV line established. EKG obtained on arrival shows sinus rhythm with rate of 90 bpm with no acute ST segment changes. CBC with differential obtained showed a white count of 6.6 with hemoglobin 9.8 and platelet count of 241. Chemistries unremarkable. LFTs were normal. Troponin less than 3. Lipase was normal at 13. CTA of the chest was obtained which showed atelectasis in both lung bases but no evidence of infiltrate or pulmonary emboli. Discussed results with patient. At this point will be discharged to home diagnosis will be chest pain etiology uncertain. Patient does describe some reflux type symptoms as well. She is already on Protonix. She is advised to follow-up with her colorist dyer. Lab Data Attestation: I reviewed the patient's lab results. Labs: Laboratory Results - last 24 hr 04/24/24 11:00 WBC 6.6 RBC 3.37 L Hgb 9.8 L Hct 31.6 L MCV 93.8 MCH 29.1 MCHC 31.0 L RDW Std Deviation 53.5 H RDW Coeff of Michele 15.4 H Plt Count 241 MPV 8.8 Immature Gran % (Auto) 0.600 Neut % (Auto) 69.0 Lymph % (Auto) 19.3 [place] % (Auto) 10.3 H Eos % (Auto) 0.5 Baso % (Auto) 0.3 Absolute Neuts (auto) 4.5 Absolute Lymphs (auto) 1.27 Nucleated RBC % 0 Sodium 139 Potassium 3.8 Chloride 105 Carbon Dioxide 26.0 Anion Gap 8 BUN 13 Creatinine 0.82 Estim Creat Clear Calc 60.12 Est GFR (MDRD) Af Amer 90 Est GFR (MDRD) Non-Af 74 BUN/Creatinine Ratio 15.9 Glucose 111 H Calcium 9.5 Total Bilirubin 0.50 AST 13 L ALT 16 Alkaline Phosphatase 69 Troponin I High Sens < 3 L Total Protein 7.1 Albumin 3.2 Globulin 3.9 Albumin/Globulin Ratio 0.8 L Lipase 13 Radiography Diagnostic Testing: Clinical Impression(s) from Imaging Studies Chest CTA 04/24/24 11:07 IMPRESSION: No evidence of pulmonary embolism. Mild degree of bibasilar atelectasis slightly worse on the right side. Enlarged mediastinal lymph nodes. Small lymph node in the upper left para-aortic region. Electronically Signed: Maximiliano Leonard MD at 12:22 EDT , EKG Initial EKG: Attestation: I personally reviewed and interpreted this EKG as follows: Comments: Sinus rhythm with rate of 90 bpm with no acute ST segment changes Discharge Plan Triage Chief Complaint: Chest Pain ED Provider: Teresa Owens Dx/Rx/DC Orders Clinical Impression: Chest pain, Abdominal pain Instructions: ED Abdominal Pain Unkn Cause Fem, ED Chest Pain, Uncertain Cause Prescriptions: No Action trazodone 100 mg tablet 100 mg PO QHS acetaminophen 325 mg tablet 650 mg PO Q6H PRN (Reason: Pain) Patient Comments: take 2 tablets by mouth every 6 hours if needed for pain tizanidine 4 mg tablet 2 - 4 mg PO Q8 PRN (Reason: Muscle Spasm) Patient Comments: take 1/2 to 1 tablet by mouth every 8 hours if needed MAXIMUM DAILY DOSE OF 3 tablets pantoprazole 40 mg tablet,delayed release (DR/EC) 40 mg PO DAILY Patient Comments: take 1 tablet by mouth 30 MINUTES MEAL polyethylene glycol 3350 17 gram/dose powder 17 g PO DAILY PRN (Reason: constipation) Patient Comments: take 17GM (DISSOLVED IN 4 TO 8 OUNCES OF LIQUID) by mouth once daily if needed for constipation fexofenadine [Patricia] 180 mg Tablet 180 mg PO Q24H allopurinol 100 mg tablet 100 mg PO DAILY lisinopril 10 mg tablet 20 mg PO DAILY albuterol sulfate [Proventil HFA] 90 mcg/actuation Hfa Aerosol Inhaler 2 puff INHALATION Q6H PRN (Reason: Shortness Of Breath) metformin 500 mg tablet extended release 24 hr 1,000 mg PO DAILY Patient Comments: take 2 tablets by mouth every morning and 1 tablet by mouth AT 1 PM metformin 500 mg tablet extended release 24 hr 500 mg PO QHS Patient Comments: take 2 tablets by mouth every morning and 1 tablet by mouth AT 1 PM levothyroxine [Tirosint] 50 mcg capsule 50 mcg PO DAILY Patient Comments: take 1 capsule by mouth once daily ondansetron HCl 4 mg tablet 4 mg PO Q8H PRN (Reason: nausea and vomiting) Patient Comments: take 1 tablet by mouth every 8 hours if needed for nausea and vomiting azelastine 137 mcg (0.1 %) aerosol,spray 1 spray INTRANASAL Q12H Patient Comments: USE ONE SPRAY IN EACH NOSTRIL TWICE DAILY olanzapine 2.5 mg tablet 2.5 mg PO QHS Patient Comments: take 1 tablet by mouth daily at bedtime Primary Care Provider: Maria Elena Moeller Referrals: Maria Elena Moeller DO [Primary Care Provider] - Activity Restrictions/Additional Instructions: Follow-up with your colorist dyer within the next 3 to 5 days. Keep your appointments with your oncologist. Print Language: Tunisian Disposition Disposition: Home, Self Care
[2024-04-24 11:17] LABS: Absolute Lymphocyte Count 1.27 X10^3/uL (0.83-4.51); Absolute Neutrophil Count 4.5 X10^3/uL (2.0-7.7); Basophil# 0.02 X10^3/uL; Basophil% 0.3 % (0-1); Eosinophil# 0.03 X10^3/uL; Eosinophils% 0.5 % (0-5); Hematocrit 31.6 % (37-47); Hemoglobin 9.8 g/dL (12.0-15.0); Lymphocyte # 1.27 X10^3/ul (0.83-4.51); Lymphocyte % 19.3 % (19-41); Mean Corpuscular Hgb 29.1 pg (27.0-32.0); Mean Corpuscular Volume 93.8 fL (81-99); Mean Platelet Vol. 8.8 fl (6.2-12.0); Monocyte# 0.68 X10^3/uL; Monocyte% 10.3 % (0-10); NRBC Flagged by Analyzer 0 % (0-5); Neutrophil # 4.54 X10^3/uL (2.7-7.7); Platelet Count 241 K/mm3 (150-450); RBC Distribution Width CV 15.4 % (11.6-14.6); RBC Distribution Width SD 53.5 fl (35.1-43.9); Red Blood Count 3.37 M/mm3 (4.2-5.4); White Blood Count 6.6 K/mm3 (4.4-11.0)
[2024-04-24] MEDS: 0.9% Normal Saline (1000mL) 1,000 ML 150 ML IV (11:27)
[2024-04-24 11:34] VITALS: BP 129/78; PULSE 81; RESP 16; O2SAT 98
[2024-04-24 11:36] LABS: ALB/GLOB Ratio 0.8 RATIO (0.9-2.4); AST(SGOT) 13 U/L (15-37); Alanine Aminotransfer ALT/SGPT 16 U/L (13-56); Albumin, Serum 3.2 g/dL (3.2-5.0); Alkaline Phosphatase 69 U/L (45-117); Anion Gap 8 (5-15); BUN 13 mg/dL (7-18); BUN/Creat Ratio 15.9 RATIO (10-20); Calcium,Total 9.5 mg/dL (8.5-10.1); Chloride 105 mmol/L (98-107); Creatinine, Serum 0.82 mg/dL (0.55-1.02); EST Glomerular Filtration Rate 74 mL/min (>60); Est Glom Filt Rate - Afr Amer 90 mL/min (>60); Estimated Creatinine Clearance 60.12 ml/min; Globulin 3.9 g/dL (2.2-4.2); Glucose 111 mg/dL (74-106); Lipase 13 U/L (13-75); Potassium 3.8 mmol/L (3.5-5.1); Protein, Total 7.1 g/dL (6.4-8.2); Sodium Level 139 mmol/L (136-145); Troponin-I HS < 3 pg/mL (3.0-54.0)
[2024-04-24 12:10] VITALS: BP 113/70; PULSE 75; RESP 16; O2SAT 97
[2024-04-24 13:00] VITALS: BP 129/74; PULSE 74; RESP 14; O2SAT 94
[2024-04-24 13:27] VITALS: BP 129/74; PULSE 74; RESP 14; TEMP 35.8; O2SAT 94
== END 2024-04-24 13:43 | disposition home or self-care (01) ==
PROVIDERS: Emergency Provider Emergency Medicine; PCP Internal Medicine; Visit Provider Emergency Medicine
DX: R07.9 Chest pain, unspecified (principal); R10.9 Unspecified abdominal pain; Z85.89 Personal history of malignant neoplasm of other organs and systems; Z92.21 Personal history of antineoplastic chemotherapy; I10 Essential (primary) hypertension; M10.9 Gout, unspecified; E03.9 Hypothyroidism, unspecified; Z79.899 Other long term (current) drug therapy; Z90.710 Acquired absence of both cervix and uterus
CPT/HCPCS: 36591; 71275; 80053; 83690; 84484; 85025; 93005; 96374; 99285; J7030; Q9967; A4216

== ENCOUNTER 2024-04-26 15:58 | Emergency (ER) | payer MEDICARE, OTHER, SELFPAY ==
[2024-04-26 15:59] VITALS: BP 126/81; PULSE 100; RESP 16; TEMP 37.4; O2SAT 96; BMI 32.0
[2024-04-26 16:02] VITALS: BP 126/81; PULSE 110; RESP 16; TEMP 37.4; O2SAT 95
--- NOTE | 2024-04-26 16:57 | CT_ITS ---
We are attempting to reach an attending provider to discuss findings. An addendum with communication details will be sent when the communication is complete. EXAM: CT ABDOMEN AND PELVIS WITH INTRAVENOUS CONTRAST CLINICAL INDICATION: pain, vtg, hx sbo -- IV PO Contrast TECHNIQUE: Helically acquired images were obtained of the abdomen and pelvis with intravenous contrast. This CT exam was performed using one or more of the following dose reduction techniques: automated exposure control, adjustment of the mA and/or kV according to patient size, and/or use of iterative reconstruction technique. CONTRAST: Oral and amp; IV Gastrografin and amp; 100mL [id number] COMPARISON: CT abdomen and pelvis, 09/10/2023 and CTA chest, 04/24/2024. FINDINGS: LOWER THORAX: Trace pericardial effusion. No cardiomegaly. ABDOMEN: LIVER: No significant abnormality. Homogeneous. No focal mass. GALLBLADDER AND BILE DUCTS: Distended gallbladder. No radiopaque stones or pericholecystic inflammation. No intra- or extrahepatic biliary ductal dilation. PANCREAS: No significant abnormality. No focal cystic or solid mass. SPLEEN: No significant abnormality. Normal size without focal cystic or solid mass. ADRENALS: No significant abnormality. No nodules. KIDNEYS AND URETERS: Bilateral hydroureteronephrosis without obstructing stone. Normal renal size and position. STOMACH AND BOWEL: High-grade small bowel obstruction without distinct transition point. No focal inflammatory change. PELVIS: APPENDIX: No evidence of acute appendicitis. BLADDER: No significant abnormality. REPRODUCTIVE: Normal as visualized. No mass. ABDOMEN and PELVIS: INTRAPERITONEAL SPACE: Strandy opacities within the mesentery with trace tracking free fluid. No free air. BONES/JOINTS: Degenerative changes in the spine. No suspicious lytic or blastic abnormality. SOFT TISSUES: Postoperative changes in the anterior abdominal wall. No discrete abdominal or pelvic wall hernia. VASCULATURE: Atherosclerosis of the aorta and its branch vessels. Abdominal aorta is non-dilated. LYMPH NODES: Mildly prominent retroperitoneal lymph nodes are identified. Soft tissue fullness at the aortic bifurcation is nonspecific. TUBES, LINES AND DEVICES: Partially visualized central venous catheter. CT/Abdomen/Pelvis WITH Contrast IMPRESSION: 1. High-grade small bowel obstruction without distinct transition point. 2. Bilateral hydroureteronephrosis without obstructing stone. This may be secondary to extrinsic mass effect or adjacent inflammatory process. 3. Trace pericardial effusion. No cardiomegaly. 4. Distended gallbladder. No radiopaque stones or pericholecystic inflammation. Follow-up as clinically indicated. Electronically Signed: Sloan Marcano DO at 20:07 EDT ,
--- NOTE | 2024-04-26 16:58 | ED.VIS.GI ---
HPI HPI - GI History of Present Illness Chief Complaint: Abd Pain Informant: patient Abdominal Pain/Flank Pain Onset: Today Timing: Continuous Quality: Aching Location: - (R mid-abd) Current Severity: Severe Maximum Severity: Severe Nausea/Vomiting/Emesis GI Symptom: Positive for Nausea and Vomiting Diarrhea/Melena/Hematochezia GI Symptom: Positive for - (last BM this AM) Associated Symptoms Associated Symptoms: Negative for Dysuria, Frequency or Hematuria Narrative Narrative: 69-year-old female presents with abdominal pain that started this morning and 2 different areas, 1 in her right mid abdomen 1 in her left mid abdomen, stating I have 2 bowel blockages. She states she has had many of these before and that is what it feels like right now. She states I massaged the left 1 out but I cannot get the other 1 to go away and the pain is getting worse and now I am vomiting. She has a history of metastatic fallopian tube cancer, it has been a couple of months since her last chemotherapy treatment because she was being placed in a trial but then the trial got canceled. She has had surgery for bowel obstructions in the past. She states she has been told to avoid nausea medication such as Zofran because she has developed bowel obstructions after getting Zofran at least 8 times, and is requesting Reglan for nausea. [facility] Medical History Anemia Asthma Celiac disease Fibromyalgia Gout Hypertension Hypothyroidism Ovarian cancer Paroxysmal SVT (supraventricular tachycardia) Restless leg syndrome Home Medications ?Medication ?Instructions ?Recorded ?Last Taken ?Type acetaminophen 325 mg tablet 650 mg PO Q6H PRN Pain 05/02/23 Unknown History albuterol sulfate 90 mcg/actuation 2 puff inhalation Q6H PRN 05/02/23 Unknown History aerosol inhaler (Proventil HFA) Shortness Of Breath allopurinol 100 mg tablet 100 mg PO DAILY 05/02/23 Unknown History fexofenadine 180 mg tablet 180 mg PO Q24H 05/02/23 Unknown History levothyroxine 50 mcg capsule 50 mcg PO DAILY 05/02/23 Unknown History (Tirosint) lisinopril 10 mg tablet 20 mg PO DAILY 05/02/23 Unknown History metformin 500 mg tablet,extended 1,000 mg PO BID 05/02/23 Unknown History release 24 hr pantoprazole 40 mg tablet,delayed 40 mg PO DAILY 05/02/23 Unknown History release polyethylene glycol 3350 17 17 g PO DAILY PRN constipation 05/02/23 Unknown History gram/dose oral powder tizanidine 4 mg tablet 2 - 4 mg PO Q8 PRN Muscle Spasm 05/02/23 Unknown History trazodone 100 mg tablet 100 mg PO QHS 05/02/23 Unknown History azelastine 137 mcg (0.1 %) nasal 1 spray intranasal Q12H 09/11/23 Unknown History spray aerosol metoclopramide HCl 10 mg tablet 10 mg PO 4X/DAY 04/26/24 Unknown History Allergy/AdvReac Type Severity Reaction Status Date / Time Food Allergies: Uncoded Allergy Mild Upset Verified 04/26/24 16:03 Stomach cefdinir Allergy Rash Verified 04/26/24 16:03 Environmental Allergies: Allergy Itching Verified 04/26/24 16:03 Uncoded (fragrances) formaldehyde Allergy Shortness Verified 04/26/24 16:03 of breath inositol Allergy PT UNSURE Verified 04/26/24 16:03 OF REACTION latex Allergy Itching Verified 04/26/24 16:03 niacin Allergy Hives Verified 04/26/24 16:03 Sulfa (Sulfonamide Allergy Hives Verified 04/26/24 16:03 Antibiotics) (sulfa drugs) aspartame AdvReac Diarrhea Verified 04/26/24 16:03 barley AdvReac Other Verified 04/26/24 16:03 ciprofloxacin (From Cipro) AdvReac Other Verified 04/26/24 16:03 shellfish derived AdvReac Vomiting Verified 04/26/24 16:03 wheat AdvReac Other Verified 04/26/24 16:03 Surgical History History of bowel resection History of hysterectomy Social History (Updated 06/03/23 @ 23:[address] Zane Montes MD) household members: none Smoking Status: Never smoker substance use type: does not use ROS ROS ED Constitutional Constitutional ED: Denies chills or fever(s) Eyes Eyes: Denies change in vision or diplopia ENT ENT ED: Denies rhinorrhea or sore throat Cardiovascular Cardiovascular: Denies chest pain or palpitations Respiratory/Chest Respiratory/Chest: Denies cough or dyspnea Gastrointestinal Gastrointestinal: Reports abdominal pain, nausea and vomiting; Denies diarrhea, hematemesis, hematochezia or melena Genitourinary Genitourinary ED: Denies dysuria or hematuria Musculoskeletal Musculoskeletal: Denies neck pain Integumentary Denies abscess or rash Neurologic Neurologic: Denies headache(s), paresthesias or weakness Psychiatric Psychiatric: Denies anxiety or suicidal thoughts EXAM Physical Exam Const Vital Signs: 04/26/24 15:59 04/26/24 16:02 04/26/24 17:58 Temperature 99.4 F H 99.4 F H Temperature Source Oral Oral Pulse Rate 100 110 H 82 Respiratory Rate 16 16 16 Blood Pressure 126/81 H 126/81 H 152/74 H Blood Pressure Mean 96 96 100 Pulse Ox 96 95 97 Oxygen Delivery Method Room Air Room Air Room Air 04/26/24 18:02 04/26/24 19:00 Temperature 98.9 F Temperature Source Temporal Pulse Rate 82 84 Respiratory Rate 15 16 Blood Pressure 132/70 H 148/75 H Blood Pressure Mean 90 99 Pulse Ox 98 98 Oxygen Delivery Method Room Air Room Air Positive well nourished and well developed General Appearance ED: well developed and NAD HEENT Reports moist mucous membranes normocephalic and atraumatic Eyes PERRL and EOMs intact bilaterally Neck full ROM and supple Resp normal respiratory effort and clear to auscultation bilaterally Cardio regular rate, regular rhythm and no murmurs GI non-distended GI Narrative: Moderate tenderness right mid abdomen, no palpable hernias or masses. Also tender in the left mid abdomen and throughout the lower abdomen but less so. No guarding or rebound tenderness. Normal bowel sounds are present. Auscultation: normoactive bowel sounds Palpation: soft Back/Spine General Back: other FROM Extremity normal to inspection General Extremety ED: Negative for edema, pulses abnormal or tenderness General Extremity: Negative for edema or pulses abnormal Neuro oriented x3, CN's II-XII intact bilaterally and no sensory deficits noted Sensorium / Orientation: awake and alert Motor Exam: strength 5/5 throughout Psych mental status grossly normal and thought process normal Skin no rashes or lesions noted and no wounds MDM MDM MDM Narrative Medical decision making narrative: Given the patient's history high suspicion for bowel obstruction. Obtained a CT with IV and oral contrast for as much detail as we could, I reviewed the images and the report which I agree with, it is consistent with a high-grade bowel obstruction however for some reason without a definitive transition point. Also noted bilateral hydroureteronephrosis. Unknown if this is acute or chronic, renal function is normal and she states she has been urinating. I discussed with Dr. Rivas with surgery, he states given the patient's history and complexity of her abdomen, he advises transfer to a tertiary care center. I spoke with Dr. Hawkins with gynecologic oncology at [facility] who knows the patient and accepts her in transfer. He is okay holding off on NG tube at this time. Patient declined morphine. She is doing well clinically she is not vomiting after antiemetics, she is ambulatory to and from the bathroom when she needed to. She is very adamant that she wants to go by private vehicle there. I think this is fine she understands she may need to get a new IV when she gets there. Lab Data Attestation: I reviewed the patient's lab results. Labs: Laboratory Results - last 24 hr 04/26/24 17:20 WBC 9.0 RBC 3.55 L Hgb 10.5 L Hct 32.5 L MCV 91.5 MCH 29.6 MCHC 32.3 RDW Std Deviation 51.8 H RDW Coeff of Michele 15.4 H Plt Count 254 MPV 8.7 Immature Gran % (Auto) 0.600 Neut % (Auto) 77.0 H Lymph % (Auto) 13.9 L [place] % (Auto) 8.1 Eos % (Auto) 0.1 Baso % (Auto) 0.3 Absolute Neuts (auto) 7.0 Absolute Lymphs (auto) 1.26 Nucleated RBC % 0 Sodium 139 Potassium 3.5 Chloride 107 Carbon Dioxide 24.0 Anion Gap 8 BUN 11 Creatinine 0.73 Estim Creat Clear Calc 61.46 Est GFR (MDRD) Af Amer 103 Est GFR (MDRD) Non-Af 85 BUN/Creatinine Ratio 15.1 Glucose 103 Lactic Acid 0.7 Calcium 9.3 Total Bilirubin 0.30 AST 17 ALT 18 Alkaline Phosphatase 71 Total Protein 7.0 Albumin 3.4 Globulin 3.6 Albumin/Globulin Ratio 0.9 Radiography Diagnostic Testing: Clinical Impression(s) from Imaging Studies Abdomen/Pelvis CT 04/26/24 16:57 IMPRESSION: 1. High-grade small bowel obstruction without distinct transition point. 2. Bilateral hydroureteronephrosis without obstructing stone. This may be secondary to extrinsic mass effect or adjacent inflammatory process. 3. Trace pericardial effusion. No cardiomegaly. 4. Distended gallbladder. No radiopaque stones or pericholecystic inflammation. Follow-up as clinically indicated. Electronically Signed: Sloan Marcano DO at 20:07 EDT , ADDENDUM: 04/26/242014 IMPRESSION: 1. High-grade small bowel obstruction without distinct transition point. 2. Bilateral hydroureteronephrosis without obstructing stone. This may be secondary to extrinsic mass effect or adjacent inflammatory process. 3. Trace pericardial effusion. No cardiomegaly. 4. Distended gallbladder. No radiopaque stones or pericholecystic inflammation. Follow-up as clinically indicated. N.B. : The above Results were Read Back by Sloan Marcano DO to Hudson Vargas MD, and understanding confirmed on 04/26/2024 20:08:24 (ET). Electronically Signed: Sloan Marcano DO at 20:07 EDT , Management Discussion w/another healthcare provider: [facility] (Dr. Rivas surgery; Dr. Hawkins gynecologic oncology.) and Radiologist Discharge Plan Triage Chief Complaint: Abd Pain ED Provider: Hudson Vargas Dx/Rx/DC Orders Clinical Impression: Complete small bowel obstruction, Cancer of fallopian tube, Hydroureteronephrosis Prescriptions: No Action trazodone 100 mg tablet 100 mg PO QHS acetaminophen 325 mg tablet 650 mg PO Q6H PRN (Reason: Pain) Patient Comments: take 2 tablets by mouth every 6 hours if needed for pain tizanidine 4 mg tablet 2 - 4 mg PO Q8 PRN (Reason: Muscle Spasm) Patient Comments: take 1/2 to 1 tablet by mouth every 8 hours if needed MAXIMUM DAILY DOSE OF 3 tablets pantoprazole 40 mg tablet,delayed release (DR/EC) 40 mg PO DAILY Patient Comments: take 1 tablet by mouth 30 MINUTES MEAL polyethylene glycol 3350 17 gram/dose powder 17 g PO DAILY PRN (Reason: constipation) Patient Comments: take 17GM (DISSOLVED IN 4 TO 8 OUNCES OF LIQUID) by mouth once daily if needed for constipation fexofenadine [Patricia] 180 mg Tablet 180 mg PO Q24H allopurinol 100 mg tablet 100 mg PO DAILY lisinopril 10 mg tablet 20 mg PO DAILY albuterol sulfate [Proventil HFA] 90 mcg/actuation Hfa Aerosol Inhaler 2 puff INHALATION Q6H PRN (Reason: Shortness Of Breath) metformin 500 mg tablet extended release 24 hr 1,000 mg PO BID Patient Comments: take 2 tablets by mouth every morning and 1 tablet by mouth AT 1 PM levothyroxine [Tirosint] 50 mcg capsule 50 mcg PO DAILY Patient Comments: take 1 capsule by mouth once daily azelastine 137 mcg (0.1 %) aerosol,spray 1 spray INTRANASAL Q12H Patient Comments: USE ONE SPRAY IN EACH NOSTRIL TWICE DAILY metoclopramide HCl 10 mg tablet 10 mg PO 4X/DAY Primary Care Provider: Maria Elena Moeller Referrals: Maria Elena Moeller DO [Primary Care Provider] - Print Language: Upper Sorbian Disposition Disposition: Acute Care Hospital Discharge Location: [facility]
[2024-04-26 17:30] LABS: Absolute Lymphocyte Count 1.26 X10^3/uL (0.83-4.51); Basophil# 0.03 X10^3/uL; Basophil% 0.3 % (0-1); Eosinophil# 0.01 X10^3/uL; Eosinophils% 0.1 % (0-5); Hematocrit 32.5 % (37-47); Hemoglobin 10.5 g/dL (12.0-15.0); Lymphocyte # 1.26 X10^3/ul (0.83-4.51); Lymphocyte % 13.9 % (19-41); Mean Corp Hgb Conc 32.3 g/dL (32-36); Mean Corpuscular Hgb 29.6 pg (27.0-32.0); Mean Corpuscular Volume 91.5 fL (81-99); Mean Platelet Vol. 8.7 fl (6.2-12.0); Monocyte# 0.73 X10^3/uL; Monocyte% 8.1 % (0-10); NRBC Flagged by Analyzer 0 % (0-5); Neutrophil # 6.96 X10^3/uL (2.7-7.7); Platelet Count 254 K/mm3 (150-450); RBC Distribution Width CV 15.4 % (11.6-14.6); RBC Distribution Width SD 51.8 fl (35.1-43.9); Red Blood Count 3.55 M/mm3 (4.2-5.4)
[2024-04-26] MEDS: 0.9% Normal Saline (1000mL) 1,000 ML 125 ML IV (17:33)
[2024-04-26] MEDS: Metoclopramide 10 MG/2 ML Vial 5 MG IV (17:36)
[2024-04-26 17:49] LABS: ALB/GLOB Ratio 0.9 RATIO (0.9-2.4); AST(SGOT) 17 U/L (15-37); Alanine Aminotransfer ALT/SGPT 18 U/L (13-56); Albumin, Serum 3.4 g/dL (3.2-5.0); Alkaline Phosphatase 71 U/L (45-117); Anion Gap 8 (5-15); BUN 11 mg/dL (7-18); BUN/Creat Ratio 15.1 RATIO (10-20); Calcium,Total 9.3 mg/dL (8.5-10.1); Chloride 107 mmol/L (98-107); Creatinine, Serum 0.73 mg/dL (0.55-1.02); EST Glomerular Filtration Rate 85 mL/min (>60); Est Glom Filt Rate - Afr Amer 103 mL/min (>60); Estimated Creatinine Clearance 61.46 ml/min; Globulin 3.6 g/dL (2.2-4.2); Glucose 103 mg/dL (74-106); Potassium 3.5 mmol/L (3.5-5.1); Sodium Level 139 mmol/L (136-145)
[2024-04-26 17:52] LABS: Lactic Acid 0.7 mmol/L (0.4-1.9)
[2024-04-26 17:58] VITALS: BP 152/74; PULSE 82; RESP 16; O2SAT 97
[2024-04-26 18:02] VITALS: BP 132/70; PULSE 82; RESP 15; TEMP 37.2; O2SAT 98
[2024-04-26 19:00] VITALS: BP 148/75; PULSE 84; RESP 16; O2SAT 98
[2024-04-26 21:00] VITALS: BP 142/89; PULSE 98; RESP 18; TEMP 36.6; O2SAT 99
[2024-04-26] MEDS: Morphine 4 MG/ML Syringe IV (21:00)
--- NOTE | 2024-04-26 21:32 | ED.RN ---
REPORT CALLED TO [facility] [place] [id number]
== END 2024-04-26 22:00 | disposition short-term general hospital (02) ==
PROVIDERS: Emergency Provider Emergency Medicine; PCP Internal Medicine; Visit Provider Emergency Medicine
DX: K56.601 Complete intestinal obstruction, unspecified as to cause (principal); C57.00 Malignant neoplasm of unspecified fallopian tube; N13.30 Unspecified hydronephrosis; Z92.21 Personal history of antineoplastic chemotherapy; I10 Essential (primary) hypertension; M10.9 Gout, unspecified; E03.9 Hypothyroidism, unspecified; Z79.899 Other long term (current) drug therapy; Z90.710 Acquired absence of both cervix and uterus
CPT/HCPCS: 36591; 74177; 80053; 83605; 85025; 96361; 96374; 96375; 99285; J7030; Q9967; A4216

== ENCOUNTER → 2024-10-13 | Outpatient (CLI) | payer MEDICARE, OTHER, SELFPAY ==
[2024-10-13 18:35] LABS: Phosphorus 3.3 mg/dL (2.5-4.9)
== END | disposition home or self-care (01) ==
PROVIDERS: PCP Internal Medicine; Visit Provider Student in an Organized Health Care Education/Training Program
DX: Z78.9 Other specified health status (principal)
CPT/HCPCS: 84100